=== PATIENT | male | born 1955 | race Caucasian/White ===

== ENCOUNTER 2019-01-09 14:33 | Emergency (ER) | payer MEDICAID ==
[~2019-01-09] VITALS: Wt 82.0 kg
[2019-01-09] MEDS ORDERED: HYDROmorphONE 2 MG/ML SYG IM STA ×2 (14:40→15:32)
[2019-01-09] MEDS ORDERED: ONDANSETRON (ODT) 4 MG TAB ODT STA (14:40)
[2019-01-09] MEDS ORDERED: KETOROLAC 30 MG INJ IM STA (14:40)
[2019-01-09] MEDS ORDERED: HYDROmorphONE 2 MG/ML SYG IV STA (16:47)
[2019-01-09] MEDS ORDERED: SOD CHLORIDE 0.9% 1,000 ML IV STA (16:47)
[2019-01-09] MEDS ORDERED: DIPHENHYDRAMINE 50 MG INJ IV ONE (17:00)
[2019-01-09] MEDS ORDERED: DEXAMETHASONE 10 MG/ML 1 ML INJ IV ONE (17:00)
[2019-01-09] MEDS ORDERED: HYDR-3980 PO (17:39)
[2019-01-09] MEDS ORDERED: NALO4SPR NS (17:39)
[2019-01-09 18:09] VITALS: BP 147/75; PULSE 85; RESP 16
--- NOTE | 2019-01-09 18:16 | ERD ---
ER Documentation Chief Complaint Chief Complaint right lower back pain radiating to right leg, no trauma. chronic sciatica HPI Patient is a 63-year-old male with diabetes who presents with "sciatic pain". The patient was brought in by ambulance. He said that it started a few weeks ago but today was worse. There was a sharp right lower back pain which radiates down the back of his right leg to the knee. He tried ibuprofen. He denies inco ntinence. He denies fevers. He denies trauma. Upon review of old medical records this is the patient's first visit to the emergency department. He does not currently have a primary doctor. ROS All systems reviewed and are negative except as per history of present illness. Medications Home Meds Active Scripts Naloxone HCl nasal spray (Narcan 4 mg/0.1 mL nasal) 4 Mg [place], 4 MG NS .Q2-3MIN for OPIOID OVERDOSE, #2 SPRAY 0 Refills [place] 0.1 mL into one nostril. Repeat with second device into other nostril after 2-3 minutes if no or minimal response Prov:LILA MARTIN MD 01/09/19 Hydrocodone/Acetaminophen ([place] 10-325 Tablet) 1 Each Tablet, 1 TAB PO Q6H PRN for PAIN, #7 TAB Prov:LILA MARTIN MD 01/09/19 Allergies Allergies: Coded Allergies: No Known Allergy (Unverified , 01/09/19) PMhx/Soc History of Surgery: No Anesthesia Reaction: No Hx Neurological Disorder: No Hx Respiratory Disorders: No Hx Cardiac Disorders: No Hx Psychiatric Problems: No Hx Miscellaneous Medical Probl: No Hx Alcohol Use: Yes (every now and ) Hx Substance Use: No Hx Tobacco Use: No Smoking Status: Never smoker FmHx Family History: diabetes Physical Exam Vitals Vital Signs Date Temp Pulse Resp B/P (MAP) Pulse Ox O2 O2 Flow FiO2 Time Delivery Rate 01/09/19 97.8 85 16 147/75 98 Room Air 18:09 (99) 01/09/19 97.8 81 20 151/79 98 Room Air 15:10 (103) 01/09/19 97.8 88 20 174/100 98 14:36 (124) Physical Exam Const: Moderate distress secondary to pain Head: Atraumatic Eyes: Normal Conjunctiva ENT: Normal External Ears, Nose and Mouth. Neck: Full range of motion. No meningismus. Resp: Clear to auscultation bilaterally Cardio: Regular rate and rhythm, no murmurs Abd: Soft, non tender, non distended. Normal bowel sounds Skin: No petechiae or rashes Back: Right lower back pain with pain over the sciatic distribution Ext: No cyanosis, or edema Neur: Awake and alert Psych: Normal Mood and Affect Results 24 hrs Current Medications Medications Dose Sig/Harmony Start Time Status Last (Trade) Ordered Route PRN Stop Time Admin Dose Reason Admin Ketorolac 30 mg ONCE STAT 01/09/19 DC 01/09/19 Tromethamine IM 14:40 15:05 (Toradol) 01/09/19 14:41 2 mg ONCE STAT 01/09/19 DC 01/09/19 Hydromorphone IM 14:40 15:04 HCl 01/09/19 14:41 (Dilaudid) Ondansetron 4 mg ONCE STAT 01/09/19 DC 01/09/19 HCl (Zofran ODT 14:40 14:59 Odt) 01/09/19 14:41 2 mg ONCE STAT 01/09/19 DC 01/09/19 Hydromorphone IM 15:32 16:04 HCl 01/09/19 15:33 (Dilaudid) Sodium 1,000 ml @ Q1H STAT 01/09/19 DC Chloride 1,000 mls/hr IV 16:47 01/09/19 17:46 10 mg ONCE ONCE 01/09/19 DC Dexamethasone IV 17:00 (Decadron) 01/09/19 17:01 25 mg ONCE ONCE 01/09/19 DC Diphenhydrami IV 17:00 ne HCl 01/09/19 17:01 (Benadryl) 1 mg ONCE STAT 01/09/19 DC Hydromorphone IV 16:47 HCl 01/09/19 16:49 (Dilaudid) Procedures/MDM Patient is a 63-year-old male presents with acute sciatic pain. The patient was given Dilaudid and Toradol. He feels better at this point. The patient will be discharged. I doubt cauda equina syndrome, epidural abscess, or epidural hematoma. Patient will need to follow-up with a local clinics within 24 to 48 hours and will be given a short course of [place]. He can return for any worsening symptoms. Departure Diagnosis: Primary Impression: Sciatic leg pain Condition: Fair Patient Instructions: Back Pain W/ Sciatica Referrals: COMMUNITY CLINICS YOU HAVE RECEIVED A MEDICAL SCREENING EXAM AND THE RESULTS INDICATE THAT YOU DO NOT HAVE A CONDITION THAT REQUIRES URGENT TREATMENT IN THE EMERGENCY DEPARTMENT. FURTHER EVALUATION AND TREATMENT OF YOUR CONDITION CAN WAIT UNTIL YOU ARE SEEN IN YOUR DOCTORS OFFICE WITHIN THE NEXT 1-2 DAYS. IT IS YOUR RESPONSIBILITY TO MAKE AN APPOINTMENT FOR FOLOW-UP CARE. IF YOU HAVE A PRIMARY DOCTOR --you should call your primary doctor and schedule an appointment IF YOU DO NOT HAVE A PRIMARY DOCTOR YOU CAN CALL OUR PHYSICIAN REFERRAL HOTLINE AT IF YOU CAN NOT AFFORD TO SEE A PHYSICIAN YOU CAN CHOSE FROM THE FOLLOWING [facility] [address] [facility]. [facility] [address] [facility] [employer] [employer] [address] [facility] [address] [facility] [facility] [address] [facility]. [facility]. [address] Additional Instructions: Call your primary care doctor TOMORROW for an appointment during the next 1-2 days.See the doctor sooner or return here if your condition worsens before your appointment time. LILA MARTIN MD January 09, 2019 18:16
[2019-01-10] MEDS ORDERED: HYDR-4011 PO (01:32)
[2019-01-10] MEDS ORDERED: IBUP-1542 PO (01:42)
== END 2019-01-09 18:10 | disposition home or self-care (01) ==
LOC: E/R 14:33
DX: M54.31 Sciatica, right side (principal)
CPT/HCPCS: 96372; J1170; J1885; J7030; Z7502; Z7610

== ENCOUNTER 2019-01-09 22:41 | Emergency (ER) | payer MEDICAID ==
[~2019-01-09] VITALS: Ht 182.9 cm; Wt 88.6 kg
[~2019-01-09 22:41] MED LIST: HYDR-3980 PO; NALO4SPR NS
[2019-01-09 22:44] VITALS: Ht 182.9 cm; Wt 88.6 kg
--- NOTE | 2019-01-10 00:15 | ERD ---
ER Documentation Chief Complaint Chief Complaint BIB [id number] for worsening back pain, seen here earlier for same HPI The patient is a 63-year-old male, presenting to the ER because of acute on chronic low back pain, radiating down to right lower extremity. He exercises and stretched this morning that exacerbate the pain. He was seen in the ER earlier today, was given Dilaudid, Toradol, Decadron and discharged with Flint. He has been taking Flint, and requesting more Flint because he is not able to see his physician soon, he denies fecal/urinary incontinence, denies fever, chills, neck pain, chest pain, dyspnea, vomiting, diarrhea, constipation. He does not smoke, drinks socially, denies any history of IV drug abuse past medical history: Chronic low back pain with sciatica Surgical history: None ROS All systems reviewed and are negative except as per history of present illness. Medications Home Meds Active Scripts Ibuprofen* (Motrin*) 600 Mg Tab, 600 MG PO Q6H PRN for PAIN AND OR ELEVATED TEMP, #30 TAB Prov:TAMAR KEBEDE MD 01/10/19 Hydrocodone/Acetaminophen ([place]int 5-325 Tablet) 1 Each Tablet, 1 EACH PO QID, #7 TAB Prov:TAMAR KEBEDE MD 01/10/19 Naloxone HCl nasal spray (Narcan 4 mg/0.1 mL nasal) 4 Mg [place], 4 MG NS .Q2-3MIN for OPIOID OVERDOSE, #2 SPRAY 0 Refills [place] 0.1 mL into one nostril. Repeat with second device into other nostril after 2-3 minutes if no or minimal response Prov:LILA MARTIN MD 01/09/19 Hydrocodone/Acetaminophen ([place] 10-325 Tablet) 1 Each Tablet, 1 TAB PO Q6H PRN for PAIN, #7 TAB Prov:LILA MARTIN MD 01/09/19 Allergies Allergies: Coded Allergies: No Known Allergy (Unverified , 01/09/19) PMhx/Soc History of Surgery: No Anesthesia Reaction: No Hx Neurological Disorder: No Hx Respiratory Disorders: No Hx Cardiac Disorders: No Hx Psychiatric Problems: No Hx Miscellaneous Medical Probl: No Hx Alcohol Use: Yes (every now and ) Hx Substance Use: No Hx Tobacco Use: No Physical Exam Vitals Vital Signs Date Temp Pulse Resp B/P (MAP) Pulse Ox O2 O2 Flow FiO2 Time Delivery Rate 01/10/19 70 20 118/82 98 Room Air 02:00 (94) 01/10/19 98.1 72 18 123/78 98 Room Air 00:15 (93) 01/09/19 99.0 85 20 176/77 97 22:44 (110) Physical Exam Const: No acute distress. Head: Atraumatic. Eyes: Normal Conjunctiva. ENT: Normal External Ears, Nose and Mouth. Neck: Full range of motion. No meningismus. Resp: Clear to auscultation bilaterally. Cardio: Regular rate and rhythm. Abd: Soft, non distended, normal bowel sounds, non tender. Skin: No petechiae or rashes. Back: No midline or flank tenderness. + right lower extremity straight leg raising test Ext: No cyanosis, or edema. Neur: Awake and alert. No focal deficit Psych: Normal Mood and Affect. Results 24 hrs Current Medications Medications Dose Sig/Harmony Start Time Status Last (Trade) Ordered Route PRN Stop Time Admin Dose Reason Admin Ketorolac 60 mg ONCE STAT 01/10/19 DC 01/10/19 Tromethamine IM 00:46 00:57 (Toradol) 01/10/19 00:47 1 tab ONCE ONCE 01/10/19 DC 01/10/19 Acetaminophen PO 01:00 00:57 / 01/10/19 01:01 Hydrocodone Bitart (Flint ()) Procedures/MDM MEDICAL MAKING DECISION: The patient is a 63-year-old male, presenting with acute on chronic low back pain with sciatica, was treated with Toradol 60 mg IM, Flint 10 mg p.o. with good response, is stable for outpatient follow-up The differential diagnoses considered include but are not limited to caudal equina syndrome, spinal abscess, DJD, diskitis, lumbar radiculopathy. Departure Diagnosis: Primary Impression: Back pain Additional Impression: Right sided sciatica Condition: Good Comments He was discharged with 7 tablets of [place] 5 mg and Motrin 600 mg I discussed the findings with the patient. I advised the patient to follow-up with the primary physician in about 2-3 days, sooner if needed and return if any concern, advised that he needs MRI for further eval. Disclaimer: Inadvertent spelling and grammatical errors are likely due to EHR/dictation software use and do not reflect on the overall quality of patient care. Also, please note that the electronic time recorded on this note does not necessarily reflect the actual time of the patient encounter. TAMAR KEBEDE MD January 10, 2019 00:15
[2019-01-10] MEDS ORDERED: KETOROLAC 60 MG INJ IM STA (00:46)
[2019-01-10] MEDS ORDERED: HYDROCODONE/APAP (10/325) TAB PO ONE (01:00)
[2019-01-10] MEDS ORDERED: HYDR-4011 PO (01:32)
[2019-01-10] MEDS ORDERED: IBUP-1542 PO (01:42)
[2019-01-10 02:00] VITALS: BP 118/82; PULSE 70; RESP 20
== END 2019-01-10 02:10 | disposition home or self-care (01) ==
LOC: E/R 22:41
DX: M54.41 Lumbago with sciatica, right side (principal)
CPT/HCPCS: 96372; J1885; Z7502; Z7610

== ENCOUNTER 2019-01-12 19:05 | Emergency (ER) | payer SELFPAY ==
[~2019-01-12] VITALS: Ht 182.9 cm; Wt 85.4 kg
[~2019-01-12 19:05] MED LIST changes: +HYDR-4011 PO; +IBUP-1542 PO
[2019-01-12 19:12] VITALS: Ht 182.9 cm; Wt 85.4 kg
--- NOTE | 2019-01-12 20:44 | ERD ---
ER Documentation Chief Complaint Chief Complaint R LEG NUMBNESS X'S 1 DAY, HX OF SCIATICA HPI 63-year-old male with past medical screen of questionable diabetes type 2, previously on metformin no longer taking medications over the last 5 years presents with complaint of numbness to anterior surface of right lower ex tremity. States she was here on Saturday and treated for sciatic type pain. Since that time symptoms of the improved but he is here because of concern of numbness to right anterior surface of right lower extremity. He otherwise denies lower extremity weakness, urinary or bowel incontinence. States he has not checked his sugar recently and has not seen a PMD in over 5 years. States he lost weight and stopped metformin abruptly on his own. At time of evaluation patient nontoxic-appearing able to walk across examination room without issue. Blood pressure to be 190/115. He denies chest pain, shortness of breath, dyspnea, headache, dizziness, lightheadedness. Not currently on any blood pressure medication and denies history of diagnosis of hypertension. ROS All systems reviewed and are negative except as per history of present illness. Medications Home Meds Active Scripts Gabapentin* (Gabapentin*) 100 Mg Capsule, 100 MG PO TID, #14 CAP Prov:MOLLY DURAN PA-C 01/12/19 Ibuprofen* (Motrin*) 600 Mg Tab, 600 MG PO Q6H PRN for PAIN AND OR ELEVATED TEMP, #30 TAB Prov:TAMAR KEBEDE MD 01/10/19 Hydrocodone/Acetaminophen ([place] 5-325 Tablet) 1 Each Tablet, 1 EACH PO QID, #7 TAB Prov:TAMAR KEBEDE MD 01/10/19 Naloxone HCl nasal spray (Narcan 4 mg/0.1 mL nasal) 4 Mg [place], 4 MG NS .Q2-3MIN for OPIOID OVERDOSE, #2 SPRAY 0 Refills [place] 0.1 mL into one nostril. Repeat with second device into other nostril after 2-3 minutes if no or minimal response Prov:LILA MARTIN MD 01/09/19 Hydrocodone/Acetaminophen ([place] 10-325 Tablet) 1 Each Tablet, 1 TAB PO Q6H PRN for PAIN, #7 TAB Prov:LILA MARTIN MD 01/09/19 Allergies Allergies: Coded Allergies: No Known Allergy (Unverified , 01/09/19) PMhx/Soc History of Surgery: No Anesthesia Reaction: No Hx Neurological Disorder: No Hx Respiratory Disorders: No Hx Cardiac Disorders: No Hx Psychiatric Problems: No Hx Miscellaneous Medical Probl: Yes (SCIATICA) Hx Alcohol Use: Yes (OCASSIONALLY) Hx Substance Use: No Hx Tobacco Use: No FmHx Family History: diabetes, coronary disease Physical Exam Vitals Vital Signs Date Temp Pulse Resp B/P (MAP) Pulse Ox O2 O2 Flow FiO2 Time Delivery Rate 01/12/19 98.3 88 18 190/115 96 19:12 (140) Physical Exam I have reviewed the triage vital signs. Const: Well nourished, well developed, appears stated age Eyes: PERRL, no conjunctival injection HENT: NCAT, Neck supple without meningismus CV: RRR, Warm, well-perfused extremities RESP: CTAB, Unlabored respiratory effort GI: soft, non-tender, non-distended, no masses MSK: No gross deformities appreciated Skin: Warm, dry. No rashes Neuro: grossly non focal Psych: Appropriate mood and affect. Results 24 hrs Laboratory Tests Test 01/12/19 20:47 Bedside Glucose 218 mg/dL Current Medications Medications Dose Sig/Harmony Start Time Status Last (Trade) Ordered Route PRN Stop Time Admin Dose Reason Admin Amlodipine 5 mg ONCE ONCE 01/12/19 DC 01/12/19 Besylate PO 21:00 21:23 (Norvasc) 01/12/19 21:01 Procedures/MDM 63-year-old male past medical history of diabetes type 2, noncompliant, not currently on medications presents with complaint of right lower extremity numbness to anterior surface. Recently treated for sciatic type pain with improvement in those symptoms. He has nonfocal neurological exam with 5 out of 5 strength noted to right lower extremity. Symptoms likely secondary to peripheral vascular disease related to likely diabetes not on admit. I have advised patient he needs to establish care with her primary care provider. Patient expressing understanding and numbers given to our clinics to arrange follow-up. I have low suspicion for any acute emergent process process requiring further emergent work-up or care. ED course: Blood glucose 218 Single dose of Norvasc 5 mg with improvement in blood pressure. Blood Pressure Assessment: Patient's blood pressure was elevated (>120/80) but appears stable without evidence of hypertension emergency or urgency. The patient was counseled about the risks of hypertension and urged to pursue outpatient monitoring and therapy within a week with their primary care physician. DISPOSITION PLAN: We discussed follow up with the patient's primary care doctor within 24 to 48 hours. Patient counseled regarding my diagnostic impression and care plan. Prior to discharge all questions answered. Pt agrees with treatment plan and understan ds strict return precautions. Precautionary instructions provided including instructions to return to the ER if not improving or for any worsening or changing symptoms or concerns. Disclaimer: Inadvertent spelling and grammatical errors are likely due to EHR/dictation software use and do not reflect on the overall quality of patient care. Also, please note that the electronic time recorded on this note does not necessarily reflect the actual time of the patient encounter. Departure Condition: MOLLY Rico PA-C January 12, 2019 20:44
[2019-01-12] MEDS ORDERED: GABA100C14 PO (20:53)
[2019-01-12] MEDS ORDERED: AMLODIPINE 5 MG TAB PO ONE (21:00)
[2019-01-12] MEDS ORDERED: AMLO5TAB4 PO (21:23)
[2019-01-12 21:40] VITALS: BP 134/66; PULSE 65; RESP 18
== END 2019-01-12 21:40 | disposition home or self-care (01) ==
LOC: FTE 19:05
DX: R20.0 Anesthesia of skin (principal)
CPT/HCPCS: 82962; 99283